=== PATIENT | male | born 1955 | race Caucasian/White ===

== ENCOUNTER → 2016-11-23 | Outpatient (CLI) | payer MEDICARE, OTHER ==
[~2016-11-23] MED LIST: ALDACTONE25 MG PO; ASPIRIN EC81 MG PO; COUMADIN ** IA5 MG PO; FLONASE 50 MCG/16 GM NOSE; LIORESAL10 MG PO; LIPITOR40 MG PO; PRILOSEC20 MG PO; TOPROL XL25 MG PO; TYLENOL EXTRA500 MG PO; ZESTRIL2.5 MG PO; ZOLOFT50 MG PO; ZYRTEC10 MG PO
== END | disposition disaster alternative care site (69) ==
LOC: GRAD 08:23
DX: E04.1 Nontoxic single thyroid nodule (principal); R93.8 Abnormal findings on diagnostic imaging of other specified body structures
CPT/HCPCS: A9516

== ENCOUNTER → 2016-12-07 | Outpatient (CLI) | payer MEDICARE, OTHER | END | disposition disaster alternative care site (69) | LOC: GPOC 12-02 13:00 → GRAD 12:39 → GPOC 14:00 | PROC: 0GBG4ZX Excision of Left Thyroid Gland Lobe, Percutaneous Endoscopic Approach, Diagnostic (ICD-10-PCS; principal; 2016-12-07) | DX: E04.1 Nontoxic single thyroid nodule (principal) ==